=== PATIENT | male | born 1985 | race African-American/Black ===

== ENCOUNTER 2024-02-19 20:47 | Emergency (ER) | payer SELFPAY ==
[2024-02-19 21:28] LABS: SARS-CoV-2 Antigen CONTROL BLUE LINE VIS/BG OK; SARS-CoV-2 Antigen Rapid Res Negative (Negative)
--- NOTE | 2024-02-19 22:19 | ER ---
Nurse's Notes [facility] Name: Bharath Espinoza Age: 38 yrs Sex: Male : 1985 Arrival Date: 02/19/2024 Time: 20:47 Bed DX3 Private MD: Diagnosis: Acute pharyngitis, unspecified Presentation: 02/18 21:01 Chief complaint: Patient states: Cough, sore throat and congestion X2 days. Coronavirus cm10 screen: Client denies travel out of the [place] in the last 14 days. At this time, the client does not indicate any symptoms associated with coronavirus-19. Ebola Screen: Patient denies travel to an Ebola-affected area in the 21 days before illness onset. No symptoms or risks identified at this time. Initial Sepsis Screen: Does the patient meet any 2 criteria? No. Patient's initial sepsis screen is negative. Does the patient have a suspected source of infection? No. Patient's initial sepsis screen is negative. Risk Assessment: Do you want to hurt yourself or someone else? Patient reports no desire to harm self or others. Onset of symptoms was February 19, 2024. 21:01 Method Of Arrival: Ambulatory cm10 21:01 Acuity: EVARISTO 4 cm10 Triage Assessment: 21:02 General: Appears in no apparent distress. comfortable, Behavior is calm, cooperative. cm10 Pain: Complains of pain in Throat Pain currently is 4 out of 10 on a pain scale. Neuro: No deficits noted. Level of Consciousness is awake, alert, obeys commands, Oriented to person, place, time, situation. Historical: - Allergies: 21:02 No Known Allergies; cm10 - Home Meds: 21:02 None [Active]; cm10 - PMHx: 21:02 Hypertensive disorder; cm10 - PSHx: 21:02 None; cm10 - Immunization history:: Adult Immunizations. - Infectious Disease History:: Denies. - Social history:: Smoking status: Patient reports the use of cigarette tobacco products, smokes one-half pack cigarettes per day. Screenin:15 [facility] ED Fall Risk Assessment (Adult) History of falling in the last 3 months, as6 including since admission No falls in past 3 months (0 pts) Confusion or Disorientation No (0 pts) Intoxicated or Sedated No (0 pts) Impaired Gait No (0 pts) Mobility Assist Device Used No (0 pt) Altered Elimination No (0 pt) Score/Fall Risk Level 0 - 2 = Low Risk Oriented to surroundings, Maintained a safe environment, Educated pt \T\ family on fall prevention, incl call for assistance when getting out of bed, Assessed \T\ reinforced patient's understanding of fall precautions. Abuse screen: Denies threats or abuse. Denies injuries from another. Nutritional screening: No deficits noted. Tuberculosis screening: No symptoms or risk factors identified. Assessment: 22:14 Reassessment: Patient appears in no apparent distress at this time. Patient and/or as6 family updated on plan of care and expected duration. Pain level reassessed. Patient is alert, oriented x 3, equal unlabored respirations, skin warm/dry/pink. Vital Signs: 21:01 BP 142 / 98; Pulse 82; Resp 18; Temp 98.4; Pulse Ox 98% on R/A; Weight 74.39 kg; Height cm10 5 ft. 9 in. ; Pain 4/10; 22:13 BP 169 / 84; Pulse 84; Resp 18 S; Pulse Ox 97% on R/A; as6 21:01 Body Mass Index 24.22 (74.39 kg, 175.26 cm) cm10 21:01 Pain Scale: Adult cm10 ED Course: 20:51 Patient arrived in ED. mr 20:52 [facility]antha Barrera, [facility] kb 20:52 Jhonny Obrien MD is Attending Physician. kb 21:02 Triage completed. cm10 21:02 Arm band placed on Patient placed in an exam room, on a stretcher. cm10 21:07 Strep Sent. cm10 21:07 SARS-COV-2 Antigen Rapid Sent. cm10 21:08 Flu Sent. cm10 22:15 Patient has correct armband on for positive identification. as6 22:15 Provided Education on: follow up. as6 22:15 No provider procedures requiring assistance completed. Patient did not have IV access as6 during this emergency room visit. Administered Medications: No medications were administered Medication: 22:14 VIS not applicable for this client. as6 Outcome: 22:19 Discharge ordered by . kb 22:24 Discharged to home ambulatory, cm10 22:24 Condition: good 22:24 Discharge instructions given to patient, Instructed on discharge instructions, follow up and referral plans. Demonstrated understanding of instructions, follow-up care, 22:24 Patient left the ED. cm10 Signatures: Samantha Barrera, [employer] HOUSING INSPECTOR-Mildred Bucio, Oswaldo Chacon mr Ra Scott, RN RN as6 Zita Goldsmith RN RN cm10
--- NOTE | 2024-02-19 22:19 | EDPHYS ---
Physician Documentation [facility] Name: Bharath Espinoza Age: 38 yrs Sex: Male : 1985 Arrival Date: 02/19/2024 Time: 20:47 Bed DX3 Private MD: ED Physician Jhonny Obrien HPI: 02/18 23:05 This 38 yrs old Black Male presents to ER via Ambulatory with complaints of Sore kb Throat, Cough, Congestion. 23:05 Pt is a 38 year old male who presents for cough and sore throat that started 2 days kb ago. Denies fever, shortness of breath, n/v. . Historical: - Allergies: 21:02 No Known Allergies; cm10 - Home Meds: 21:02 None [Active]; cm10 - PMHx: 21:02 Hypertensive disorder; cm10 - PSHx: 21:02 None; cm10 - Immunization history:: Adult Immunizations. - Infectious Disease History:: Denies. - Social history:: Smoking status: Patient reports the use of cigarette tobacco products, smokes one-half pack cigarettes per day. ROS: 23:05 Constitutional: As per HPI kb Exam: 23:05 Constitutional: This is a well developed, well nourished patient who is awake, alert, kb and in no acute distress. Head/Face: Normocephalic, atraumatic. Cardiovascular: Regular rate Respiratory: Respirations even and unlabored. No increased work of breathing. Talking in full sentences Skin: Warm, dry with normal turgor. Normal color. MS/ Extremity: Pulses equal, no cyanosis. Neurovascular intact. Full, normal range of motion. Neuro: Awake and alert, GCS 15, oriented to person, place, time, and situation. Moves all extremities. Normal gait. 23:05 ENT: Posterior pharynx: swelling, is not appreciated, erythema, that is mild, that is moderate, Vital Signs: 21:01 BP 142 / 98; Pulse 82; Resp 18; Temp 98.4; Pulse Ox 98% on R/A; Weight 74.39 kg; Height cm10 5 ft. 9 in. ; Pain 4/10; 22:13 BP 169 / 84; Pulse 84; Resp 18 S; Pulse Ox 97% on R/A; as6 21:01 Body Mass Index 24.22 (74.39 kg, 175.26 cm) cm10 21:01 Pain Scale: Adult cm10 MDM: 20:53 Patient medically screened. kb 23:06 Differential diagnosis: flu, covid, strep, pharyngitis, uri. Data reviewed: vital kb signs, nurses notes. I considered the following discharge prescriptions or medication management in the emergency department I discussed and recommended Over The Counter medications, Antibiotics: At this time antibiotics are not recommended. Counseling: I had a detailed discussion with the patient and/or guardian regarding the historical points, exam findings, and any diagnostic results supporting the discharge/admit diagnosis, lab results, the need for outpatient follow up, a family practitioner, to return to the emergency department if symptoms worsen or persist or if there are any questions or concerns that arise at home. 02/18 20:54 Order name: Flu; Complete Time: 21:45 kb 02/18 20:54 Order name: SARS-COV-2 Antigen Rapid; Complete Time: 21:30 kb 02/18 20:54 Order name: Strep; Complete Time: 22:18 kb 02/18 21:47 Order name: Throat Culture EDMS Administered Medications: No medications were administered Disposition Summary: 02/19/24 22:19 Discharge Ordered Notes: Location: Home kb Condition: Stable kb Diagnosis - Acute pharyngitis, unspecified kb Followup: kb - With: Emergency Department - When: As needed - Reason: Worsening of condition Followup: kb - With: Private Physician - When: 2 - 3 days - Reason: Recheck today's complaints, Continuance of care, Re-evaluation by your physician Discharge Instructions: - Discharge Summary Sheet kb - Pharyngitis, [id number] kb Forms: - Work release form kb - Medication Reconciliation Form kb - Antibiotic Education kb - Prescription Opioid Use kb - Patient Portal Instructions kb - Leadership Thank You Letter kb Signatures: Dispatcher [employer] Samantha Paulino FNP-C FNP-Zita Srinivasan, RN RN cm10
[2024-02-19 23:10] VITALS: BP 169/84; TEMP 98.4; O2SAT 97
== END 2024-02-19 22:24 | disposition home or self-care (01) ==
LOC: ER 20:47
DX: J02.9 Acute pharyngitis, unspecified (principal); Z11.52 Encounter for screening for COVID-19
CPT/HCPCS: 36415; 87070; 87081; 87804; 87811